=== PATIENT | male | born 1935 | race Caucasian/White ===

== ENCOUNTER 2020-07-05 09:36 | Observation (INO) ==
[2020-07-05 10:16] LABS: Basophils # 0.1 10*3/uL (0.0-0.2); Basophils % 1.2 % (0.0-0.8); Eosinophils # 0.6 10*3/uL (0.0-0.87); Eosinophils % 6.6 % (0.00-10.9); Hematocrit 47.4 VOL% (42.0-52.0); Hemoglobin 15.4 GM/DL (14.0-18.0); Immature Granulocytes % 0.4 %; Immature Granulocytes Absolute 0.04 #; Lymphocytes % 31.1 % (21.2-54.2); Mean Corpuscular HGB Conc 32.5 GM/DL (32-36); Mean Corpuscular Volume 87.6 FL (87-102); Mean Platelet Volume 11.3 FL (9.6-12.0); Monocytes % 5.8 % (1.7-12.7); Neutrophils % 54.9 % (38.7-73.9); Platelet Count 245 T/CUMM (130-400); Red Blood Count 5.41 MC/CUMM (3.8-5.5); Red Cell Distribution Width 15.5 % (9.3-17.3); White Blood Count 9.7 T/CUMM (4-12)
[2020-07-05 10:40] LABS: Bilirubin,Total 0.5 MG/DL (0.2-1.0); Calcium 9.3 MG/DL (8.5-10.1); Osmolality,Calculated 277.7 MOS/KG (273-304); Potassium 4.4 MMOL/L (3.5-5.1); Total Protein 7.8 G/DL (6.4-8.2)
[2020-07-05 11:06] LABS: INR 1.1; PT Patient Result 11.7 SECS (9.8-11.9); Partial Thromboplastin Time 30.6 SECS (23.9-33.8)
[2020-07-05] MEDS ORDERED: ONDANSETRON 4 MG/2 ML VIAL IV STA (11:35)
[2020-07-05] MEDS ORDERED: GLUCAGON 1 MG VIAL IM PRN (13:12)
[2020-07-05] MEDS ORDERED: hydrALAZINE 20 MG/1 ML VIAL IV PRN (13:12)
[2020-07-05] MEDS ORDERED: ONDANSETRON 4 MG/2 ML VIAL IV PRN (13:12)
[2020-07-05] MEDS ORDERED: DEXTROSE 50% 25 GM/50 ML VIAL IV PRN (13:12)
[2020-07-05] MEDS ORDERED: ACETAMINOPHEN 325 MG TABLET PO PRN (13:12)
[2020-07-05 14:04] LABS: Risk Ratio 3.34; Thyroid Stimulating Hormone 2.76 uIU/ml (0.358-3.74); VLDL CHOLESTEROL 30.8 MG/DL
[2020-07-05] MEDS: MECLIZINE 25 MG TABLET PO SCH ×2 (16:39→22:47)
[2020-07-05] MEDS: EZETIMIBE 10 MG TABLET PO SCH (22:47)
[2020-07-05] MEDS: PRIMIDONE 50 MG TABLET PO SCH (22:47)
[2020-07-05] MEDS: ATORVASTATIN 80 MG TABLET PO SCH (22:47)
[2020-07-05] MEDS: APIXABAN 2.5 MG TABLET PO SCH (22:47)
[2020-07-06 05:39] LABS: Basophils # 0.1 10*3/uL (0.0-0.2); Basophils % 1.2 % (0.0-0.8); Eosinophils # 0.7 10*3/uL (0.0-0.87); Eosinophils % 7.8 % (0.00-10.9); Hematocrit 44.1 VOL% (42.0-52.0); Hemoglobin 14.3 GM/DL (14.0-18.0); Immature Granulocytes % 0.4 %; Immature Granulocytes Absolute 0.04 #; Lymphocytes # 2.6 10*3/uL (1.4-4.0); Lymphocytes % 28.9 % (21.2-54.2); Mean Corpuscular HGB Conc 32.4 GM/DL (32-36); Mean Platelet Volume 10.9 FL (9.6-12.0); Monocytes % 7.4 % (1.7-12.7); Neutrophils % 54.3 % (38.7-73.9); Platelet Count 216 T/CUMM (130-400); Red Blood Count 5.01 MC/CUMM (3.8-5.5); Red Cell Distribution Width 15.6 % (9.3-17.3)
[2020-07-06 06:13] LABS: Calcium 9.2 MG/DL (8.5-10.1); Osmolality,Calculated 276.7 MOS/KG (273-304); Potassium 4.6 MMOL/L (3.5-5.1)
[2020-07-06] MEDS: LEVOTHYROXINE 100 MCG TABLET PO SCH (07:08)
[2020-07-06] MEDS ORDERED: SPIRONOLACTONE 25 MG TABLET PO SCH (09:00)
[2020-07-06] MEDS ORDERED: amLODIPine 10 MG TABLET PO SCH (09:00)
[2020-07-06] MEDS: CALCIUM (CARBONATE) 500 MG TABLET PO SCH (09:58)
[2020-07-06] MEDS: APIXABAN 2.5 MG TABLET PO SCH ×2 (09:58→23:03)
[2020-07-06] MEDS: OMEGA 3 ACID ETHYL ESTERS 1 GM CAPSULE PO SCH (09:58)
[2020-07-06] MEDS: PRIMIDONE 50 MG TABLET PO SCH ×2 (09:58→23:03)
[2020-07-06] MEDS: CLOPIDOGREL 75 MG TABLET PO SCH (09:59)
[2020-07-06] MEDS: allopurinoL 100 MG TABLET PO SCH (09:59)
[2020-07-06] MEDS: PANTOPRAZOLE 40 MG TABLET PO SCH (09:59)
[2020-07-06] MEDS ORDERED: MECLIZINE 25 MG TABLET PO ONE (10:00)
[2020-07-06] MEDS: MECLIZINE 25 MG TABLET PO SCH ×3 (11:09→23:02)
[2020-07-06] MEDS: LACTATED RINGERS 1,000 ML IV SCH (15:11)
[2020-07-06] MEDS ORDERED: LACTATED RINGERS 500 ML IV ONE (17:04)
[2020-07-06] MEDS: ATORVASTATIN 80 MG TABLET PO SCH (23:02)
[2020-07-06] MEDS: EZETIMIBE 10 MG TABLET PO SCH (23:02)
[2020-07-07] MEDS: LACTATED RINGERS 1,000 ML IV SCH ×2 (01:10→03:00)
[2020-07-07 06:24] LABS: Basophils # 0.1 10*3/uL (0.0-0.2); Basophils % 1.1 % (0.0-0.8); Eosinophils # 0.7 10*3/uL (0.0-0.87); Eosinophils % 6.9 % (0.00-10.9); Hematocrit 42.7 VOL% (42.0-52.0); Hemoglobin 13.6 GM/DL (14.0-18.0); Immature Granulocytes % 0.4 %; Immature Granulocytes Absolute 0.04 #; Lymphocytes # 2.5 10*3/uL (1.4-4.0); Lymphocytes % 25.9 % (21.2-54.2); Mean Corpuscular HGB Conc 31.9 GM/DL (32-36); Mean Corpuscular Volume 88.2 FL (87-102); Mean Platelet Volume 11.6 FL (9.6-12.0); Monocytes % 6.7 % (1.7-12.7); Platelet Count 218 T/CUMM (130-400); Red Blood Count 4.84 MC/CUMM (3.8-5.5); Red Cell Distribution Width 15.4 % (9.3-17.3); White Blood Count 9.5 T/CUMM (4-12)
[2020-07-07 06:41] LABS: Osmolality,Calculated 282.4 MOS/KG (273-304); Potassium 4.5 MMOL/L (3.5-5.1)
[2020-07-07] MEDS: LEVOTHYROXINE 100 MCG TABLET PO SCH (06:59)
[2020-07-07] MEDS: PANTOPRAZOLE 40 MG TABLET PO SCH (08:27)
[2020-07-07] MEDS: MECLIZINE 25 MG TABLET PO SCH (08:27)
[2020-07-07] MEDS: PRIMIDONE 50 MG TABLET PO SCH (08:27)
[2020-07-07] MEDS: CALCIUM (CARBONATE) 500 MG TABLET PO SCH (08:27)
[2020-07-07] MEDS: CLOPIDOGREL 75 MG TABLET PO SCH (08:27)
[2020-07-07] MEDS: OMEGA 3 ACID ETHYL ESTERS 1 GM CAPSULE PO SCH (08:27)
[2020-07-07] MEDS: allopurinoL 100 MG TABLET PO SCH (08:28)
[2020-07-07] MEDS: APIXABAN 2.5 MG TABLET PO SCH (08:28)
[2020-07-07 12:28] VITALS: BP 141/65
== END 2020-07-07 13:23 | disposition home or self-care (01) ==
LOC: N.ED 09:36 → N.EDINP 09:36 → N.TELES 16:02
PROVIDERS: ADMIT Internal Medicine Geriatric Medicine; ATTEND Internal Medicine Geriatric Medicine